=== PATIENT | female | born 1990 | race Caucasian/White ===

== ENCOUNTER 2019-11-26 10:08 | Emergency (ER) | payer OTHER ==
[~2019-11-26] VITALS: Ht 157.5 cm; Wt 55.0 kg
[2019-11-26 10:20] VITALS: BP 149/86
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
== END 2019-11-26 10:37 | disposition home or self-care (01) ==
LOC: ER 10:08
DX: S10.93XA Contusion of unspecified part of neck, initial encounter (principal); Z88.2 Allergy status to sulfonamides; Z88.5 Allergy status to narcotic agent; Z88.6 Allergy status to analgesic agent; Z88.8 Allergy status to other drugs, medicaments and biological substances; W22.8XXA Striking against or struck by other objects, initial encounter; Y93.89 Activity, other specified; Y92.89 Other specified places as the place of occurrence of the external cause; Y99.8 Other external cause status
CPT/HCPCS: 99281